=== PATIENT | male | born 1980 | race Caucasian/White ===

== ENCOUNTER 2017-02-01 12:29 | Emergency (ER) | payer OTHER ==
[~2017-02-01] VITALS: Ht 165.1 cm; Wt 72.5 kg
[2017-02-01 12:37] VITALS: BP 125/73; PULSE 58; RESP 22; TEMP 97.8; O2SAT 100
[2017-02-01 12:40] VITALS: BP 125/73; PULSE 58; RESP 22; TEMP 97.8; O2SAT 100
[2017-02-01] MEDS ORDERED: ALBUPOW26 INH (12:48)
[2017-02-01] MEDS ORDERED: SERT-132 PO (12:48)
[2017-02-01] MEDS ORDERED: MELO7.5T27 PO (12:48)
[2017-02-01] MEDS ORDERED: DICL1GEL7 TOPICAL (12:48)
[2017-02-01] MEDS ORDERED: TRAZ100T10 PO (12:48)
[2017-02-01] MEDS ORDERED: KETOROLAC TROMETHAMINE 30 MG/ML (IVP) VIAL IV PUSH ONE (14:00)
[2017-02-01] MEDS ORDERED: ROBA750T PO (14:00)
--- NOTE | 2017-02-01 14:04 | PD ---
HPI Chief Complaint: Back/ Neck Pain or Injury Time Seen by Provider: 13:23 Travel History International Travel<30 days: No Contact w/Intl Traveler<30days: No Traveled to known affect area: No History of Present Illness HPI 36-year-old male presents to the emergency room via a VAC for evaluation of severe low back pain. Patient has history of low back pain, degenerative disc disease, bulging discs. States while having a bowel movement earlier today, he developed severe pain that was debilitating. Pain was sharp and dull. Localized to the left lower back and radiated down his left lower extremity. [facility] went to the [facility] and they called an ambulance and had him brought to the emergency room. Since he has been in the emergency room, his symptoms have completely resolved. He has not had anything for pain today. Patient is asymptomatic at this time and would like to leave. He is requesting an injection of Toradol in case the pain returns. He denies lower extremity paresthesias, saddle anesthesia, loss of bowel or bladder control, history of cancer, IV drug use, fevers, chills, or weight loss. PFSH Past Medical History Anxiety: Yes GERD: Yes Insomnia: Yes Medical other: Yes (TIETZE'S DISEASE) Musculoskeletal: Yes (BACK PAIN, CARPAL TUNNEL) Neurologic: Yes (TINNITUS) Psychiatric: Yes (PTSD) Respiratory: Yes (DYSPNEA) Tetanus Vaccination: Unknown Influenza Vaccination: No Past Surgical History Surgical History: No Previous Surgery Social History Alcohol Use: No Tobacco Use: No Substance Use: No Allergies-Medications (Allergen,Severity, Reaction): Coded Allergies: NSAIDS (Non-Steroidal Anti-Inflamma (Verified Allergy, Unknown, 02/01/17) bupropion (Verified Allergy, Unknown, 02/01/17) celecoxib (Verified Allergy, Unknown, 02/01/17) Uncoded Allergies: nicotine patch (Allergy, Unknown, 02/01/17) Reported Meds & Prescriptions Reported Meds & Active Scripts Active Reported Trazodone (Trazodone HCl) 100 Mg Tablet 100 Mg PO HS Sertraline (Sertraline HCl) 50 Mg Tab 50 Mg PO HS Meloxicam 7.5 Mg Tab 7.5 Mg PO DAILY Diclofenac Topical 1% Gel 1 Applic TOPICAL BID [Albuterol] 90 Mcg INH QID Review of Systems Except as stated in HPI: all other systems reviewed are Neg Physical Exam Narrative GENERAL: Well-nourished, well-developed male in no acute distress. Afebrile. Ambulatory. SKIN: Focused skin assessment warm/dry. No erythema or ecchymosis. HEAD: Normocephalic. EYES: No scleral icterus. No injection or drainage. NECK: Supple, trachea midline. No JVD or lymphadenopathy. CARDIOVASCULAR: Regular rate and rhythm without murmurs, gallops, or rubs. RESPIRATORY: Breath sounds equal bilaterally. No accessory muscle use. BACK: No CVA tenderness. No rash. No point tenderness on palpation of the spine. Negative straight leg raise. Data Data Last Documented VS Vital Signs Date Time Temp Pulse Resp B/P (MAP) Pulse Ox O2 Delivery O2 Flow Rate FiO2 02/01/17 12:40 97.8 58 22 125/73 (90) 100 Room Air Orders Orders Ed Discharge Order (02/01/17 13:58) Ketorolac Inj (Toradol Inj) (02/01/17 14:00) [facility] Medical Decision Making Medical Screen Exam Complete: Yes Emergency Medical Condition: Yes Medical Record Reviewed: Yes Differential Diagnosis Acute on chronic low back pain, muscle spasm, muscle strain Narrative Course 36-year-old male with history of back pain presents to the emergency room for evaluation of left lower back pain that radiated down his left lower extremity. Patient states pain was debilitating but has since resolved without any intervention. Denies any recent trauma or injury. No red flag symptoms. Last MRI was 2 years ago. No indication for imaging at this time. Patient was given IV Toradol in the ED and discharged with prescription for Robaxin. Told to follow-up at the [facility] for long-term management of chronic condition. Told to return for worsening symptoms. He understands and agrees to plan. Diagnosis Primary Impression: Spasm of muscle of lower back Referrals: Primary Care Physician Additional Instructions: Rest and drink plenty of fluids. Take Robaxin as directed, as needed for pain. Take prescribed mobic or diclofenac with food as directed, as needed for pain. Apply ice to the affected area for 20 minutes at a time, as needed for pain and swelling. Follow-up with a primary care physician. Return to the emergency room for worsening symptoms. Med/Other Pt SpecificInfo: Prescription(s) given Disposition: 01 DISCHARGE HOME Condition: Stable Angelia aCmpo Feb 01, 2017 14:04
[2017-02-01 14:11] VITALS: BP 128/69
== END 2017-02-01 14:13 | disposition home or self-care (01) ==
LOC: NEPD 12:29
DX: M62.838 Other muscle spasm (principal); M54.5 Low back pain
CPT/HCPCS: 96374; 99284; J1885